=== PATIENT | female | born 1980 | race Caucasian/White ===

== ENCOUNTER 2017-07-22 20:48 | Emergency (ER) | payer SELFPAY, OTHER | END 2017-07-22 23:25 | disposition left against medical advice (07) | LOC: FTE 20:48 | DX: Z53.21 Procedure and treatment not carried out due to patient leaving prior to being seen by health care provider (principal) ==

== ENCOUNTER 2017-07-23 10:15 | Emergency (ER) | payer OTHER ==
[2017-07-23] MEDS: HYDROCODONE/APAP (5/325) TAB PO (12:42)
== END 2017-07-23 14:50 | disposition home or self-care (01) ==
LOC: FTE 10:15
DX: S99.912A Unspecified injury of left ankle, initial encounter (principal); J45.909 Unspecified asthma, uncomplicated; W10.9XXA Fall (on) (from) unspecified stairs and steps, initial encounter; Y92.9 Unspecified place or not applicable
CPT/HCPCS: 29515; 73610; 73630-LT; 99283-25